=== PATIENT | female | born 1955 | race Caucasian/White ===

== ENCOUNTER 2021-11-25 05:43 | Emergency (ER) | payer MEDICARE, SELFPAY ==
--- NOTE | ~2021-11-25 | XR_ITS ---
EXAMINATION: XR chest 1V portable DATE: 11/25/2021 09:07 INDICATION: Dyspnea TECHNIQUE: frontal view of the chest was obtained. COMPARISON: None FINDINGS: Mild biapical pleural-parenchymal scarring. No other airspace opacities, pulmonary edema, pleural eff usion or pneumothorax. The cardiomediastinal silhouette is normal. Cholecystectomy clips at the gallb ladder fossa. IMPRESSION: 1. No acute cardiopulmonary disease. Reviewed, dictated and finalized at location B. [facility]
[2021-11-25 05:52] VITALS: BP 144/91; PULSE 107; RESP 20; TEMP 36.7; O2SAT 100
--- NOTE | 2021-11-25 08:17 | ED.ABDPAIN ---
HPI - Abdominal Pain General Chief Complaint: Abdominal Pain Stated Complaint: N/V, covid exposure Time Seen by Provider: 11/25/21 08:14 Source: patient Mode of arrival: ambulatory Limitations: no limitations History of Present Illness HPI narrative: The patient is a 66 yo female presenting for evaluation of headache, vomiting, and abdominal pain. Pt is from [place], visiting family for the holiday and is concerned she has had a COVID exposure. Pt with headache, abdominal pain started 3 days ago. Pt with numerous episodes of non bilious emesis for past 24 hours. Pt has had a mild occipital headache resolving with Tylenol. Pt abdominal pain is in RLQ, worsened with eating and drinking. Pt does reports bloody emesis this morning which is what prompted her visit. Pt reports associated dizziness, lightheadedeness, as well as shortness of breath and anxiety. Pt also reporting watery diarrhea past 36 hours. Denies falls, vision changes, chest pain. Denies rhinorrhea or sore throat. She does report subjective fevers. Pt is fully vaccinated with booster for COVID. Pt with history of cholecystectomy, oophorectomy, hysterectomy. Related Data Home Medications Medication Instructions Recorded Confirmed estradiol 0.5 mg PO DAILY 11/25/21 11/25/21 levothyroxine 50 mcg PO DAILY 11/25/21 11/25/21 omeprazole 40 mg PO DAILY 11/25/21 11/25/21 Allergies Allergy/AdvReac Type Severity Reaction Status Date / Time codeine Allergy Unknown Verified 11/25/21 08:10 Review of Systems Review of Systems: CONSTITUTIONAL: Subjective fever EYES: Denies visual changes, redness, or discharge. ENT: Denies rhinorrhea, congestion, sore throat, or otalgia. CARDIOVASCULAR: Denies chest pain, palpitations, or edema. RESPIRATORY: Denies cough, reports shortness of breath at times. GASTROINTESTINAL: Reports abdominal pain, nausea, vomiting, diarrhea GENITOURINARY: Denies dysuria or hematuria. SKIN: Denies rash or itching. MUSCULOSKELETAL: Denies back pain, joint pain, or myalgia. NEUROLOGIC: Reports headache, weakness, numbness PSYCHIATRIC: Reports anxiety [facility] Social History Social History (Updated 11/25/21 @ 08:37 by Sheryl Spencer MD) Smoking status: Never smoker Alcohol intake: never Substance use: never Gender identity (if verbalized by the patient): Female Exam Narrative: GENERAL: Awake, alert, conversant HEAD: Normocephalic, atraumatic. EYES: PERRLA and EOMI. ENT: Nares clear, no rhinorrhea or epistaxis. Mucous membranes moist. NECK: Supple. CHEST: No respiratory distress, breathing even and non labored HEART: Tachycardic rate, sinus rhythm ABDOMEN:Non distended, non tender EXTREMITIES: Normal range of motion. No edema. SKIN: Warm, dry, no rash. NEURO:No focal deficits. Alert and oriented x3 Course Vital Signs Vital signs: Vital Signs Temperature 36.7 C 11/25/21 05:52 Pulse Rate 107 H 11/25/21 05:52 Respiratory Rate 20 11/25/21 05:52 Blood Pressure 144/91 H 11/25/21 05:52 Pulse Oximetry 100 11/25/21 05:52 Temperature 36.7 C 11/25/21 05:52 Pulse Rate 81 11/25/21 10:10 Respiratory Rate 18 11/25/21 10:10 Blood Pressure 119/84 11/25/21 10:10 Pulse Oximetry 100 11/25/21 10:10 MDM - Abdominal Pain MDM Narrative Medical decision making narrative: Patient presented for evaluation of headache, nausea, vomiting. At the time of assessment, ABCs are intact and patient is mildly tachycardic. On exam, patient does not have any significant focal pain. There is mild right upper quadrant tenderness on exam but patient has a history of cholecystectomy. She is afebrile. No hypoxia. Laboratory results are reassuring. No leukocytosis, no anemia, no electrolyte derangement, no significant JUDSON. Chest x-ray without acute cardiopulmonary abnormality. Patient with mild headache but no focal deficits to be suggestive of acute intracranial hemorrhage. Patient without any blurry vision, no thunderclap sensa
[2021-11-25 08:24] LABS: Basophils Percent Auto 0.6 % (0.2-1.2); Eosinophils Percent Auto 0.4 % (0-4.4); Hematocrit 42.6 % (37.0-47.0); Hemoglobin 13.6 g/dL (12.0-15.0); Immature Granulocyte Absolute 0.01 K/mm3 (0.00-0.031); Immature Granulocyte Percent A 0.2 % (0-0.5); Lymphocytes Absolute Auto 0.82 K/mm3 (0.9-3.2); Lymphocytes Percent Auto 15.6 % (18.3-44.2); Mean Corpuscular HGB Conc 31.9 g/dl (32-36); Mean Corpuscular Hemoglobin 29.8 pg (26-34); Mean Corpuscular Volume 93.2 fl (80-100); Mean Platelet Volume 10.8 fl (7.4-10.4); Monocytes Absolute Auto 0.4 K/mm3 (0.1-0.6); Neutrophils Percent Auto 76.2 % (45.5-73.1); Platelet Count Result 278 k/mm3 (150-375); Red Blood Count 4.57 M/mm3 (4.2-5.4); Red Cell Distribution Width 13.2 % (11.5-14.5); White Blood Count 5.3 K/mm3 (4.5-10.0)
[2021-11-25 08:31] LABS: Add Urine Microscopic? YES; Appearance Urine Clear (Clear); Bilirubin Urine Negative (Negative); Blood Urine 1+ (Negative); Color Urine Colorless (Yellow); Glucose Urine UA Negative (Negative); Ketones Urine Trace mg/dL (Negative); Leukocyte Esterase Ur Negative LEU/UL (Negative); Mucus Urine Rare /lpf; Nitrate Urine Negative (Negative); Protein Urine Negative (Negative); RBC Urine 0-2 /hpf (0-2); Squamous Epithelial Cell Urine Few /hpf (Few); Urobilinogen Urine Negative mg/dL (<2.0); WBC Urine 0-3 /hpf
[2021-11-25 08:36] LABS: Specific Grav Ur 1.003 (1.001-1.035)
--- NOTE | 2021-11-25 08:39 | ECG_ITS ---
Measurements Intervals [place] Rate: 73 P: 62 SC: 164 QRS: 61 QRSD: 84 T: 43 QT: 424 QTc: 469 Interpretive Statements SINUS RHYTHM BORDERLINE ST-T WAVE ABNORMALITY- ANTEROLAT/INF LEADS BASELINE ARTIFACT- II, AVF BORDERLINE ECG Electronically Signed On 11-25-2021 9:40:00 [employer] by Ervin Santizo D.O.
[2021-11-25 08:44] LABS: Alanine Aminotransferase 20 U/L (4-35); Albumin Level 4.3 g/dL (3.5-5.1); Alkaline Phosphatase 82 U/L (38-126); Anion Gap 11 mmol/L (8-16); Aspartate Amino Transferase 27 U/L (14-36); Bilirubin,Total 0.4 mg/dL (0.2-1.3); Blood Urea Nitrogen 9 mg/dL (7-17); Calcium 8.6 mg/dL (8.4-10.2); Carbon Dioxide 25 mmol/L (22-30); Chloride 105 mmol/L (98-107); Estimated Glomerular Filt Rate > 60; Glucose 122 mg/dL (65-110); Lipase 74 U/L (23-300); Potassium 3.9 mmol/L (3.4-5.0); Sodium 141 mmol/L (137-145)
[2021-11-25] MEDS: MORPHINE SULFATE (*CRX) 2 MG/ML INJ IV PUSH (08:50)
[2021-11-25] MEDS: ONDANSETRON INJ 4 MG/2 ML VIAL IV PUSH (08:51)
[2021-11-25] MEDS: SODIUM CHLORIDE 0.9% IV 1,000 ML 999 ML IV CONT ×2 (08:51)
[2021-11-25 09:10] LABS: D Dimer 0.29 ug/mL (<0.48)
--- NOTE | 2021-11-25 09:21 | PC.NURSE ---
RN called to room and pt states IV site is hurting. Appears site has infiltrated. new IV obtained
--- NOTE | 2021-11-25 09:57 | PC.NURSE ---
pt ambulating to the bathroom with no difficulty. Pt given water for PO challange
[2021-11-25 10:02] LABS: Troponin I < 0.012 ng/mL (0.000-0.034)
[2021-11-25 10:10] VITALS: BP 119/84; PULSE 81; RESP 18; O2SAT 100
[2021-11-25] MEDS: METOCLOPRAMIDE HCL INJ 10 MG/2 ML VIAL IV PUSH (10:54)
[2021-11-25 11:08] LABS: Thyroid Stimulating Hormone 0.541 uIU/mL (0.465-4.680)
[2021-11-25 21:22] LABS: SARS-CoV-2 RNA PCR Positive
== END 2021-11-25 11:00 | disposition home or self-care (01) ==
PROVIDERS: Emergency Provider Emergency Medicine
DX: U07.1 COVID-19 (principal); E86.0 Dehydration; R11.2 Nausea with vomiting, unspecified; R94.31 Abnormal electrocardiogram [ECG] [EKG]
CPT/HCPCS: 36415; 71045; 80053; 81001; 83690; 84443; 84484; 85025; 85380; 87804; 93005; 96361; 96374; 96375; 99284; C9803; J2270; J2405; J2765; J7030; U0003; U0005